=== PATIENT | female | born 2005 | race Caucasian/White ===

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

== ENCOUNTER → 2025-05-01 | Outpatient (REF) | payer OTHER ==
[~2025-05-01] MED LIST changes: -IBUP-1022 PO; +IBUP600T42 PO; +TOPI-256 PO; -TOPI25TA10 PO; -ZIPR40CA11 PO; +ZIPR40CA21 PO
== END ==
LOC: M SFHCDERM 16:57
PROVIDERS: ATTEND Nurse Practitioner Family
DX: L02.92 Furuncle, unspecified (principal)